=== PATIENT | female | born 1995 | race Caucasian/White ===

== ENCOUNTER → 2023-10-05 17:22 | Outpatient (REF) | payer BC, SELFPAY | LOC: RAD 17:22 | PROVIDERS: ATTENDING PHYSICIAN Neurological Surgery; FAMILY PHYSICIAN Student in an Organized Health Care Education/Training Program | DX: M54.50 Low back pain, unspecified (principal) | CPT/HCPCS: 72131 ==

== ENCOUNTER → 2025-03-13 12:42 | Outpatient (REF) | payer BC, SELFPAY | LOC: REG 12:42 | PROVIDERS: ATTENDING PHYSICIAN Pain Medicine Pain Medicine; FAMILY PHYSICIAN Nurse Practitioner Family | DX: M54.6 Pain in thoracic spine (principal); G89.29 Other chronic pain; M54.12 Radiculopathy, cervical region | CPT/HCPCS: 72050; 72072 ==